=== PATIENT | female | born 1960 | race Caucasian/White ===

== ENCOUNTER → 2017-03-28 | Outpatient (CLI) | payer BC ==
[~2017-03-28] MED LIST: AMBUNK PO; IBUP-1050 PO
--- NOTE | 2017-03-28 12:38 | MAMMOGRAPHY REPORT ---
BILATERAL DIGITAL SCREENING MAMMOGRAM TOMOSYNTHESIS WITH CAD: 03/28/2017 CLINICAL HISTORY: Routine screening. Patient has no complaints. TECHNIQUE: Breast tomosynthesis in addition to standard 2D mammography was performed. Current study was also evaluated with a Computer Aided Detection (CAD) system. COMPARISON: Comparison is made to exams dated: 03/23/2016 mammogram, 03/18/2015 mammogram, 03/11/2014 m ammogram, 03/06/2013 mammogram, 02/23/2012 mammogram, and 04/14/2011 mammogram - [facility] nter. BREAST COMPOSITION: There are scattered areas of fibroglandular density in both breasts. FINDINGS: The parenchymal pattern is similar to prior exams. No developing mass, architectural dist ortion or cluster of suspicious microcalcifications is seen in either breast. IMPRESSION: ACR BI-RADS CATEGORY 2: BENIGN There is no mammographic evidence of malignancy. A 1 year screening mammogram is recommended. The pa tient will receive written notification of the results. Approximately 10% of breast cancers are not detected with mammography. A negative mammographic report should not delay biopsy if a clinically suggestive mass is present. Ximena Torre M.D. ay/:03/28/2017 08:30:41 Event Marketing Manager: Susana OLIVEIRA(R)(M), [facility] letter sent: Normal 1/2 BI-RADS Code: ACR BI-RADS Category 2: Benign
== END | disposition home or self-care (01) ==
LOC: C.MAMM 07:19
PROVIDERS: ATTEND Obstetrics & Gynecology
DX: Z12.31 Encounter for screening mammogram for malignant neoplasm of breast (principal)

== ENCOUNTER → 2017-09-07 | Outpatient (CLI) | payer BC, OTHER ==
--- NOTE | 2017-09-07 10:41 | DIAGNOSTIC IMAGING REPORT ---
L FOOT MIN 3 VIEWS HISTORY: 56 years-old Female LEFT FOOT PAIN acute left-sided foot pain COMPARISON: None available TECHNIQUE: 3 views of the left foot FINDINGS: Mild first MTP joint osteoarthritis with marginal spurring and subchondral sclerosis involving the first metatarsal head with the adjacent hallux sesamoid articulations. Bones are mildly demineralized. There is an acute to subacute appearing obliquely oriented nondisplaced intra-articular fracture involving the medial base of the fifth middle phalanx with mild associated soft tissue swelling. No additional acute fracture or dislocation. No stress fracture. Mild to moderate marginal spurring about the midfoot. Small to moderate plantar enthesophyte about the calcaneus. IMPRESSION: 1. Acute to subacute appearing obliquely oriented nondisplaced intra-articular fracture involves the medial base of the fifth middle phalanx with mild associated soft tissue swelling. 2. Mild degenerative changes as above. The above report was generated using voice recognition software. It may contain grammatical, syntax or spelling errors. Electronically signed by: Jose Guerrero M.D. 09/07/2017 10:40 AM Dictated Date/Time: 09/07/2017 10:36 AM
== END | disposition home or self-care (01) ==
LOC: C.RDSM 20:14
PROVIDERS: ATTEND Family Medicine
DX: S92.525A Nondisplaced fracture of middle phalanx of left lesser toe(s), initial encounter for closed fracture (principal); W22.09XA Striking against other stationary object, initial encounter; Z88.0 Allergy status to penicillin